=== PATIENT | male | born 1980 | race Caucasian/White ===

== ENCOUNTER 2022-10-29 22:25 | Inpatient (IN) | payer MEDICAID ==
[~2022-10-29] VITALS: Ht 175.3 cm; Wt 103.4 kg
[2022-10-29] MEDS ORDERED: ONDANSETRON HCL 4MG/2ML INJ IV STA (22:51)
[2022-10-29] MEDS ORDERED: LABETALOL 5MG/ML SYR 20 MG/4 ML SYRINGE IV ONE (23:00)
[2022-10-29 23:10] LABS: BASOPHILS % 0.5 % (0.0-2.0); EOSINOPHILS % 1.3 % (0.0-5.0); LYMPHOCYTES % 30.7 % (20.0-50.0); MEAN CORPUSCULAR HEMOGLOBIN 27.4 pg (28.0-32.0); MEAN CORPUSCULAR VOLUME 82.3 fL (80.0-94.0); MEAN PLATELET VOLUME 7.4 fl (7.4-10.4); MONOCYTES % 7.2 % (2.0-8.0); NEUTROPHILS % 60.3 % (40.0-76.0); PLATELET 321 x1000/uL (130-400); RED CELL DISTRIBUTION WIDTH 13.5 % (11.6-14.6)
[2022-10-29 23:11] LABS: CHLORIDE 101 mEq/L (98-107)
[2022-10-29 23:13] LABS: PROTHROMBIN TIME 10.6 sec (9.6-11.0)
[2022-10-30] MEDS ORDERED: HYDRALAZINE 20MG/ML VIAL IV NR (01:15)
[2022-10-30] MEDS ORDERED: SODIUM CHLORIDE 0.9% 1,000 ML IV NR (03:45)
[2022-10-30] MEDS ORDERED: HYDRALAZINE 20MG/ML VIAL IV PRN (03:45)
[2022-10-30] MEDS: HYDRALAZINE HCL 100MG TABLET PO SCH ×2 (06:51→13:20)
[2022-10-30 08:30] LABS: BASOPHILS % 0.3 % (0.0-2.0); EOSINOPHILS % 0.1 % (0.0-5.0); HEMATOCRIT. 37.7 % (42.0-52.0); HEMOGLOBIN. 12.6 g/dL (14.0-18.0); LYMPHOCYTES % 13.3 % (20.0-50.0); MEAN CORPUSCULAR HEMOGLOBIN 27.6 pg (28.0-32.0); MEAN CORPUSCULAR VOLUME 82.2 fL (80.0-94.0); MEAN PLATELET VOLUME 7.5 fl (7.4-10.4); MONOCYTES % 4.2 % (2.0-8.0); NEUTROPHILS % 82.1 % (40.0-76.0); PLATELET 324 x1000/uL (130-400); RED BLOOD CELL COUNT 4.58 mill/uL (4.7-6.1); RED CELL DISTRIBUTION WIDTH 13.7 % (11.6-14.6)
[2022-10-30] MEDS ORDERED: AMLODIPINE 10MG TABLET PO SCH (09:00)
[2022-10-30] MEDS ORDERED: DIPHENHYDRAMINE 50MG/ML VIAL IV PRN (14:15)
[2022-10-30] MEDS ORDERED: ONDANSETRON HCL 4MG/2ML INJ IV PRN (14:15)
[2022-10-30] MEDS ORDERED: CLONIDINE 0.1MG TABLET PO PRN (14:15)
[2022-10-30] MEDS ORDERED: ACETAMINOPHEN 325MG TABLET PO PRN ×2 (14:15)
[2022-10-30] MEDS ORDERED: DEXTROSE 50% WATER 50ML SYRINGE IV PRN (14:30)
[2022-10-30] MEDS: ATENOLOL 25MG TABLET PO SCH (15:19)
[2022-10-30] MEDS: NIFEDIPINE XL 90MG TAB PO SCH (15:19)
[2022-10-30 16:00] VITALS: BP 154/80
[2022-10-30] MEDS: BLOOD SUGAR DIAGNOSTIC STRIP TEST SCH ×2 (16:30→20:31)
[2022-10-30] MEDS: INSULIN LISPRO 100 UNITS/ML SUBCUT SCH ×2 (17:49→20:38)
[2022-10-30 18:51] VITALS: BP 138/78
[2022-10-30 20:00] VITALS: BP 114/68
[2022-10-30] MEDS: SODIUM CHLORIDE 0.9% INJ 3ML FLUSH IVF SCH (20:41)
[2022-10-31] VITALS: BP 122/69
[2022-10-31 04:00] VITALS: BP 117/72
[2022-10-31] MEDS: SODIUM CHLORIDE 0.9% INJ 3ML FLUSH IVF SCH ×2 (06:35→14:00)
[2022-10-31] MEDS: INSULIN LISPRO 100 UNITS/ML SUBCUT SCH ×2 (06:36→11:51)
[2022-10-31] MEDS: BLOOD SUGAR DIAGNOSTIC STRIP TEST SCH ×2 (06:36→11:36)
[2022-10-31] MEDS ORDERED: METFORMIN HCL 500MG TABLET PO SCH (07:10)
[2022-10-31 08:00] VITALS: BP 130/80
[2022-10-31] MEDS: NIFEDIPINE XL 90MG TAB PO SCH (08:50)
[2022-10-31] MEDS: ATENOLOL 25MG TABLET PO SCH (08:51)
[2022-10-31 12:00] VITALS: BP 150/95
== END 2022-10-31 15:20 | disposition home or self-care (01) | DRG 115 ==
LOC: ER 22:25 → MICUSO 10-30 02:58 → EDBD 10-30 02:58 → EDBEDREQ 10-30 03:05 → EDBEDREQTM 10-30 03:05 → 7EST 10-30 16:16
PROVIDERS: ADMIT Internal Medicine; ATTEND Internal Medicine
PROC: 2Y41X5Z Packing of Nasal Region using Packing Material (ICD-10-PCS; principal; 2022-10-30)
DX: R04.0 Epistaxis (principal); E11.9 Type 2 diabetes mellitus without complications; I10 Essential (primary) hypertension; Z82.49 Family history of ischemic heart disease and other diseases of the circulatory system; Z91.14 Patient's other noncompliance with medication regimen
CPT/HCPCS: 36415; 71045; 80053; 82962; 83036; 83880; 84484; 85025; 86850; 86900; 99285; J0360; J1815; J2405; J3490

== ENCOUNTER 2024-06-23 04:09 | Emergency (ER) | payer MEDICAID ==
[~2024-06-23] VITALS: Ht 175.3 cm; Wt 98.6 kg
[2024-06-23 04:11] VITALS: BP 172/110; RESP 18; TEMP 98.3; O2SAT 99
[2024-06-23 04:13] VITALS: PULSE 82; O2SAT 97
== END 2024-06-23 05:34 | disposition left against medical advice (07) ==
LOC: ER 04:09
DX: R04.0 Epistaxis (principal); Z53.21 Procedure and treatment not carried out due to patient leaving prior to being seen by health care provider